=== PATIENT | female | born 1965 | race Caucasian/White ===

== ENCOUNTER 2022-07-16 06:00 | Emergency (ER) | payer SELFPAY ==
[~2022-07-16] VITALS: Ht 152.4 cm; Wt 68.0 kg
[2022-07-16 06:02] VITALS: BP 128/59
--- NOTE | 2022-07-16 06:27 | NUR ---
PT AMBULATED TO ED 11, PT PLACED IN A GOWN, DR FRIAS AT BEDSIDE.
[2022-07-16] MEDS ORDERED: NACL 0.9% 1,000 ML IV ONE ×2 (06:30→08:50)
[2022-07-16] MEDS ORDERED: ACETAMINOPHEN 325 MG TAB PO ONE (06:30)
[2022-07-16] MEDS ORDERED: KETOROLAC 15 MG/ML VIAL IVP ONE (06:30)
--- NOTE | 2022-07-16 06:45 | NUR ---
PT C/O NO BM X 2 DAYS WITH LOWER ABD PAIN, DENIES N/V. PT STATES SHE HAS NOT BEEN EATING FOR A FEW DAYS. C/O FOUL SMELLING URINE X 2 WEEKS.
[2022-07-16] MEDS ORDERED: cefTRIAXone 1,000 MG VIAL ONE (06:58)
[2022-07-16 07:04] LABS: BASOPHILS % (AUTO) 0.2 % (0.0-2.0); EOSINOPHILS # (AUTO) 0.1 K/uL (0-0.4); EOSINOPHILS % (AUTO) 0.4 % (0.0-4.0); HEMATOCRIT 36.6 % (36-48); HEMOGLOBIN 12.9 g/dL (12.0-16.0); LYMPHOCYTES # (AUTO) 0.7 K/uL (2.5-16.5); LYMPHOCYTES % (AUTO) 4.3 % (20.5-51.1); MEAN CORPUSCULAR HEMOGLOBIN 30 pg (27-31); MEAN CORPUSCULAR HGB CONC 35 g/dL (33-37); MEAN CORPUSCULAR VOLUME 83.7 fL (80-94); MONOCYTES # (AUTO) 0.6 K/uL (0.8-1.0); MONOCYTES % (AUTO) 3.8 % (1.7-9.3); NEUTROPHILS # (AUTO) 14.1 K/uL (1.8-7.7); NEUTROPHILS % (AUTO) 91.3 % (42.2-75.2); PLATELET COUNT (AUTO) 250 K/uL (140-450); RED BLOOD CELL COUNT(AUTO) 4.37 MIL/uL (4.20-5.40); RED CELL DISTRIBUTION WIDTH 13.5 % (11.6-13.7); WHITE BLOOD COUNT (AUTO) 15.4 K/uL (4.8-10.8)
[2022-07-16 07:08] LABS: APPEARANCE,URINE HAZY (CLEAR); BILIRUBIN,URINE NEGATIVE (NEGATIVE); BLOOD, URINE 1+ (NEGATIVE); COLOR,URINE YELLOW (YELLOW); LEUKOCYTE ESTERASE ,URINE 2+ (NEGATIVE); NITRITE, URINE POSITIVE (NEGATIVE); UGLUCOSE NEGATIVE (NEGATIVE)
[2022-07-16 07:16] LABS: RBC,URINE 0-5 /HPF (0-5); WBC,URINE >25 (MANY) /HPF (0-5)
[2022-07-16 07:34] LABS: ALBUMIN 3.4 g/dL (3.4-5.0); ANION GAP 9.8 (8-16); CARBON DIOXIDE 28.9 mmol/L (21-32); CREATININE 0.9 mg/dL (0.6-1.3); POTASSIUM 3.7 mmol/L (3.5-5.1); TOTAL BILIRUBIN 0.5 mg/dL (0.0-1.0)
--- NOTE | 2022-07-16 07:35 | NUR ---
COVID SWAB COLLECTED
[2022-07-16 09:36] VITALS: BP 136/78
[2022-07-16] MEDS ORDERED: CEPH-588 PO (10:03)
[2022-07-16] MEDS ORDERED: LACT-103 PO (10:06)
--- NOTE | 2022-07-16 10:15 | NUR ---
Patient discharged with v/s stable. Written and verbal after care instructions given and explained. Patient verbalized understanding. Ambulatory with steady gait. All questions addressed prior to discharge. Advised to follow up with PMD.
--- NOTE | 2022-07-20 16:18 | NUR ---
LATE ENTRY IV NS FLUIDS AND IV ROCEPHIN ENDED ON 07/16/22 AT 10:15
--- NOTE | 2022-07-20 18:34 | NUR ---
LATE ENTRY. RECEIVED POSITIVE URINE CULTURE. FORM GIVEN TO DR EMERSON, TREATMENT APPROPRIATE. FORM PLACED IN BINDER
== END 2022-07-16 10:15 | disposition home or self-care (01) ==
LOC: MED 06:00
DX: A41.9 Sepsis, unspecified organism (principal); Z20.822 Contact with and (suspected) exposure to COVID-19; E11.9 Type 2 diabetes mellitus without complications; N39.0 Urinary tract infection, site not specified; Z79.4 Long term (current) use of insulin; Z79.899 Other long term (current) drug therapy
CPT/HCPCS: 36415; 80053; 81001; 81025; 83605; 85025; 87040; 87086; 87426; 96365; 96366; 96375; 99284; J0696; J1885